=== PATIENT | female | born 1960 | race Caucasian/White ===

== ENCOUNTER 2022-02-02 07:40 | Outpatient (CLI) | payer OTHER | END 2022-02-02 07:59 | disposition home or self-care (01) | LOC: MAMO-SONO 07:40 | DX: Z12.31 Encounter for screening mammogram for malignant neoplasm of breast (principal); N60.11 Diffuse cystic mastopathy of right breast; N60.12 Diffuse cystic mastopathy of left breast ==

== ENCOUNTER 2022-09-30 12:34 | Outpatient (CLI) | payer OTHER | END 2022-09-30 12:43 | disposition home or self-care (01) | LOC: NUCLEAR 12:34 | PROVIDERS: ATTEND General Practice | DX: M81.0 Age-related osteoporosis without current pathological fracture (principal) ==